=== PATIENT | female | born 1980 | race Native Hawaiian/Other Pacific Islander ===

== ENCOUNTER 2021-06-15 18:41 | Emergency (ER) | payer BC ==
[~2021-06-15] VITALS: Ht 170.2 cm; Wt 93.4 kg
[2021-06-15 20:03] LABS: POTASSIUM 3.9 mmol/L (3.6-5.2)
[2021-06-15 20:10] LABS: PLATELET COUNT 220 K/uL (152-353)
[2021-06-15 20:16] LABS: PARTIAL THROMBOPLASTIN TIME 23.5 SECONDS (24.5-33.6)
[2021-06-15 21:40] VITALS: BP 138/71; TEMP 98.1
== END 2021-06-15 21:40 | disposition home or self-care (01) ==
LOC: ED 18:41
PROVIDERS: Emergency Medicine
DX: Z87.410 Personal history of cervical dysplasia (principal); R94.5 Abnormal results of liver function studies; B19.20 Unspecified viral hepatitis C without hepatic coma
CPT/HCPCS: 36415; 80053; 81000; 85027; 85610; 85730; 99284; Q9963